=== PATIENT | female | born 1985 | race Caucasian/White ===

== ENCOUNTER 2016-09-02 18:45 | Outpatient (CLI) | payer MEDICAID ==
[~2016-09-02] VITALS: Ht 165.1 cm; Wt 73.0 kg
[2016-09-02 19:21] VITALS: Ht 165.1 cm; Wt 73.0 kg
--- NOTE | 2016-09-02 19:41 | PN ---
Date/Time of Note Date/Time of Note DATE: 09/02/16 TIME: 19:38 OB Subjective Subjective Subjective 31 yo P0 @ 39wks5 days, present w ctx, r/o labor. No LOF, good FM, no VB (has some now after exam) OB Objective Objective Objective VS: 142/86, 87, 18, 98.1 Abdomen- gravid, n/t SVE- 1/50/-2 FHt- 120's; reactive; Cat I [place]- irreg ctx Abdomen: WNL Cervical Dilatation: 1cm Effacement: 50% Station: -2 Membranes: Intact Heart Rate: 120's Accelerations: Accelerations Present Decelerations: No Decelerations Contractions on Admission: >10 Minutes Apart OB Assessment/Plan Other Assessment: 31 yo P0 @ term, r/o labor Other plan: not in labor d/c home f/u ELHAM Zhong MD Sep 02, 2016 19:40
--- NOTE | 2016-09-02 19:56 | TRIAGE ---
OB Triage Datetime Report Generated by CPN: 09/02/2016 19:56 Datetime: 09/02/2016 19:31 Monitor Mode: Palpation Quality: Mild Datetime: 09/02/2016 19:30 Labor Evaluation Frequency: 5-6 Monitor Mode: External Duration (sec)2399: 50-60 Pattern: Normal: <= 5 Contractions in 10 Minutes Heart Rate FHR Baseline Rate: 125 Monitor Mode: External US FHR Baseline Changes: No Baseline Change Variability: Moderate 6-25 bpm Accelerations: 15X15 Decelerations: None Category: Category I Datetime: 09/02/2016 19:05 Stage of : OB Triage Assessment Type: Triage EGA: 39.5 Maternal Assessment Level of Consciousness: Fully Conscious DTR's/Clonus: DTRs 2+; No Clonus Headache: Denies Blurred Vision: No Respiratory Effort: Unlabored; Regular Rhythm; Equal Expansion Breath Sounds, Left: Clear and Equal Breath Sounds, Right: Clear and Equal Nausea/Vomiting: Denies RUQ Epigastric Pain: Denies Lower Extremities Edema: None Degree: None Upper Extremities Edema: None Degree: None Facial Edema: None Temperature Route: Axillary Fall Risk Assessment History of Falling: (0) No Secondary Diagnosis: (0) No Ambulatory Aid: (0) Bedrest/Nurse Assist IV Therapy: (0) No Gait: (0) Normal/Bedrest/Immobile Mental Status: (0) Oriented to Own Ability Fall Score: 0 Fall Risk Score Definition: No Risk: No action required Labor Evaluation Frequency: 5-6 Monitor Mode: External Duration (sec)2399: 30-50 Quality: Mild Pattern: Normal: <= 5 Contractions in 10 Minutes Resting Tone Clancy: Relaxed Heart Rate FHR Baseline Rate: 135 Monitor Mode: External US Variability: Moderate 6-25 bpm Decelerations: None Category: Category II Pain Assessment Pain Scale: 5 Pain Presence: Intermittent Pain Type: Cramping Pain Location: Abdomen Pain Goal: 3 Pain Relief Measures: Comfort Measures Vaginal Exam Dilatation (cms): 1.0 Effacement (%): 50 Station: -2 Exam By: Tiny SALVATORE Membrane Status: Intact Datetime: 09/02/2016 19:04 Time of Arrival: 09/02/2016 18:50 Arrived By: Ambulatory Arrived From: Home Chief Complaint: C/O UC'S TODAY Q 5-10 MIN. DENIES LEAKING OF FLUID, BUT STATES SOME BLEEDING Movement: Present Contractions: Regular Contractions: 5-10 Rupture of Membranes: Denies Vaginal Discharge: Present Recent Sexual Intercouse: Denies Abdominal Trauma: Not Applicable Patient Complaints: Contractions Additional Patient Complaints: BABY LEVEL 2 U/S KIDNEY R RENAL ARTERY NOT VISUALIZED INITIALLY, B UT SEEN LATER IN Time Provider Notified: 09/02/2016 19:30 Provider Notified: SIMSPON Initial Plan: MONITOR, VE
== END 2016-09-02 19:50 | disposition home or self-care (01) ==
LOC: OBT 18:45 → L-D 19:03 → OBT 19:50
PROVIDERS: ATTEND Obstetrics & Gynecology
DX: O26.893 Other specified pregnancy related conditions, third trimester (principal); Z3A.39 39 weeks gestation of pregnancy
CPT/HCPCS: G0463

== ENCOUNTER 2016-09-05 07:06 | Inpatient (IN) | payer MEDICAID ==
[~2016-09-05] VITALS: Ht 165.1 cm; Wt 76.5 kg
[2016-09-05 07:18] VITALS: Ht 165.1 cm; Wt 76.5 kg
[2016-09-05] MEDS ORDERED: PREN1TAB31 PO (07:21)
[2016-09-05] MEDS ORDERED: MISOPROSTOL 200 MCG TAB PR PRN (08:00)
[2016-09-05] MEDS ORDERED: BUTORPHANOL 2 MG INJ IV PRN (08:00)
[2016-09-05] MEDS ORDERED: LACTATED RINGER'S 1,000 ML IV PRN (08:00)
[2016-09-05] MEDS ORDERED: LIDOCAINE 1% (MPF) 30 ML INJ INJ PRN (08:00)
[2016-09-05] MEDS ORDERED: IBUPROFEN 600 MG TAB PO PRN (08:00)
[2016-09-05] MEDS ORDERED: OXYTOCIN 30 UNITS/LR 500 ML IV PRN (08:00)
[2016-09-05] MEDS ORDERED: AMPICILLIN 2 GM/NS (PMX) 100 ML IV ONE (08:00)
[2016-09-05] MEDS ORDERED: METHYLERGONOVINE 0.2 MG INJ IM PRN (08:00)
[2016-09-05] MEDS ORDERED: OXYTOCIN 30 UNITS/LR 500 ML IV SCH ×2 (08:00)
[2016-09-05] MEDS ORDERED: CARBOPROST 250 MCG INJ IM PRN (08:00)
[2016-09-05 08:18] LABS: ADD SCAN DIFF NO
[2016-09-05 08:28] LABS: BASOPHILS % 0.4 % (0.0-2.0); EOSINOPHILS # 0.1 10^3/ul (0.0-0.5); EOSINOPHILS % 0.6 % (0.0-7.0); HEMATOCRIT 40.8 % (37.0-47.0); HEMOGLOBIN 13.5 g/dl (12.0-16.0); LYMPHOCYTES # 1.8 10^3/ul (0.8-2.9); LYMPHOCYTES % 21.2 % (15.0-51.0); MEAN CORPUSCULAR HEMOGLOBIN 28.4 pg (29.0-33.0); MEAN CORPUSCULAR HGB CONC 33.1 g/dl (32.0-37.0); MEAN CORPUSCULAR VOLUME 85.9 fl (82.0-101.0); MEAN PLATELET VOLUME 11.7 fl (7.4-10.4); MONOCYTE # 0.9 10^3/ul (0.3-0.9); MONOCYTES % 10.3 % (0.0-11.0); NEUTROPHIL # 5.5 10^3/ul (1.6-7.5); NEUTROPHILS % 66.3 % (39.0-77.0); PLATELET COUNT 222 10^3/UL (140-415); RED BLOOD COUNT 4.75 10^6/ul (4.20-5.40); RED CELL DISTRIBUTION WIDTH 14.6 % (11.5-14.5); WHITE BLOOD COUNT 8.3 10^3/ul (4.8-10.8)
[2016-09-05] MEDS: LACTATED RINGER'S 1,000 ML IV SCH ×2 (08:28→16:15)
[2016-09-05 08:32] LABS: INR 0.83; PROTIME 11.4 Sec (12.2-14.2); PT RATIO 0.9
[2016-09-05 08:33] LABS: PARTIAL THROMBOPLASTIN TIME 26.4 Sec (25.0-35.0)
--- NOTE | 2016-09-05 08:50 | TRIAGE ---
OB Triage Datetime Report Generated by CPN: 09/05/2016 08:50 Datetime: 09/05/2016 08:18 Assessment Type: Admission Assessment Vaginal Bleeding: None Maternal Assessment Level of Consciousness: Fully Conscious DTR's/Clonus: DTRs 2+; No Clonus Headache: Denies Blurred Vision: No Respiratory Effort: Unlabored; Regular Rhythm; Equal Expansion Breath Sounds, Left: Clear and Equal Breath Sounds, Right: Clear and Equal Nausea/Vomiting: Denies RUQ Epigastric Pain: Denies Lower Extremities Edema: None Degree: None Upper Extremities Edema: None Degree: None Facial Edema: None Fall Risk Assessment History of Falling: (0) No Secondary Diagnosis: (0) No Ambulatory Aid: (0) Bedrest/Nurse Assist IV Therapy: (20) Yes Gait: (0) Normal/Bedrest/Immobile Mental Status: (0) Oriented to Own Ability Fall Score: 20 Fall Risk Score Definition: No Risk: No action required Pain Assessment Pain Scale: 0 Pain Presence: None/Denies Pain Type: N/A Datetime: 09/05/2016 08:00 Time of Arrival: 09/05/2016 08:00 EGA: 40.1 Arrived By: Ambulatory Datetime: 09/05/2016 07:18 Assessment Type: Triage Maternal Assessment Level of Consciousness: Fully Conscious DTR's/Clonus: DTRs 2+; No Clonus Headache: Denies Blurred Vision: No Respiratory Effort: Unlabored; Regular Rhythm; Equal Expansion Breath Sounds, Left: Clear and Equal Breath Sounds, Right: Clear and Equal Nausea/Vomiting: Denies RUQ Epigastric Pain: Denies Lower Extremities Edema: None Degree: None Upper Extremities Edema: None Degree: None Facial Edema: None Fall Risk Assessment History of Falling: (0) No Secondary Diagnosis: (0) No Ambulatory Aid: (0) Bedrest/Nurse Assist IV Therapy: (0) No Gait: (0) Normal/Bedrest/Immobile Mental Status: (0) Oriented to Own Ability Fall Score: 0 Fall Risk Score Definition: No Risk: No action required Datetime: 09/05/2016 07:17 Assessment Type: Triage Datetime: 09/05/2016 06:56 Time of Arrival: 09/05/2016 06:56 EGA: 40.1 Arrived By: Wheelchair Arrived From: Home Chief Complaint: R/O LABOR Movement: Present Contractions: Denies/Absent Rupture of Membranes: Denies Vaginal Discharge: Denies Recent Sexual Intercouse: Denies Abdominal Trauma: Not Applicable Additional Patient Complaints: SPOTTING Time Provider Notified: 09/05/2016 07:17 Provider Notified: [facility] Initial Plan: MONITOE AND VE Datetime: 09/02/2016 19:05 EGA: 39.5 Fall Score: 0 Fall Risk Score Definition: No Risk: No action required
[2016-09-05] MEDS: OXYTOCIN 30 UNITS/LR 500 ML IV SCH (09:18)
[2016-09-05] MEDS: AMPICILLIN 1 GM/NS (PMX) 50 ML IV SCH ×3 (11:53→20:32)
[2016-09-06] MEDS: LACTATED RINGER'S 1,000 ML IV SCH ×2 (00:45→08:31)
[2016-09-06] MEDS: AMPICILLIN 1 GM/NS (PMX) 50 ML IV SCH ×3 (00:45→08:27)
[2016-09-06] MEDS ORDERED: BUTORPHANOL 2 MG INJ IV PRN (08:00)
[2016-09-06] MEDS ORDERED: MINERAL OIL 30ML CUP PO ONE (09:00)
[2016-09-06] MEDS ORDERED: MINERAL OIL LIGHT 10 ML VIAL TOP ONE (10:00)
[2016-09-06] MEDS: OXYTOCIN 30 UNITS/LR 500 ML IV SCH ×3 (14:08→18:31)
[2016-09-06 14:25] VITALS: BP 120/61; PULSE 77; RESP 16
[2016-09-06] MEDS ORDERED: DIBUCAINE 1% 30 GM OINT PR PRN (15:00)
[2016-09-06] MEDS ORDERED: OXYCODONE/ASPIRIN (4.88/325) TAB PO PRN ×2 (15:00)
[2016-09-06] MEDS ORDERED: LANOLIN 7 GM TUBE TOP PRN (15:00)
[2016-09-06] MEDS ORDERED: WITCH HAZEL/GLYCERIN PAD PR PRN (15:00)
[2016-09-06] MEDS ORDERED: BENZOCAINE 20% 56 ML SPRAY TOP PRN (15:00)
[2016-09-06] MEDS ORDERED: ACETAMINOPHEN 325 MG TAB PO PRN (15:00)
[2016-09-06] MEDS ORDERED: ACETAMINOPHEN/CODEINE #3 TAB PO PRN ×2 (15:00)
[2016-09-06] MEDS ORDERED: ONDANSETRON 4 MG INJ IV PRN (15:00)
[2016-09-06 17:00] VITALS: BP 123/67; PULSE 78; RESP 20
[2016-09-06] MEDS: IBUPROFEN 600 MG TAB PO SCH ×2 (17:52→23:47)
[2016-09-06 19:45] VITALS: BP 109/66; PULSE 77; RESP 18
--- NOTE | 2016-09-06 20:21 | LDN ---
Date/Time of Note Date/Time of Note DATE: 09/06/16 TIME: 20:18 Delivery Summary Normal spontaneous vaginal delivery of a baby boy from OA position shoulders delivered without any difficulty rest of the baby's body followed cord clamped after stopped pulsation baby handed to the team for immediate attention , placenta spontaneous expulsion inspected complete patient sustained small first-degree perineal laceration repaired with 4-0 chromic catgut Problems: Infant Delivery Information Sex Infant Sex: male Apgars 1 Minute: 7 5 Minute: 9 Suctioning Delee suction performed: No Umbilical Cord Umbilical cord with: 3 Vessels Cord Blood was obtained: Yes TING MCKEE MD Sep 06, 2016 20:21
--- NOTE | 2016-09-06 20:28 | HP ---
Date/Time of Note Date/Time of Note DATE: 09/06/16 TIME: 20:22 OB - History Hx of Present Free Text/Dictation 31 years old female 1. admitted to [facility] in labor with a EDC of September 04 , complaining of vaginal bloody discharge admission examination cervical dilatation 3-4 cm with 70% effacement vertex at -2 station contraction 3-5 minutes apart heart rate category 1 patient transferred from triage unit to L&D for delivery Chief Complaint: Labor contraction Estimated Due Date: Sep 04, 2016 : 1 Para: 0 Care: Good Care Ultrasounds: Normal mid trimester US Obstetrical Complications: None Medical Complications: None Past Family/Social History * Past Medical, Surgical, Family and Obstetric Histories reviewed from chart. Rubella: immune RPR/VDRL: Negative GBS Status: Negative HBsAG: Negative OB Admission Exam Vital Signs Vital Signs Vital Signs Date Time Temp Pulse Resp B/P Pulse Ox O2 Delivery O2 Flow Rate FiO2 09/06/16 17:00 99.0 78 20 123/67 Room Air Physical Exam HEENT: WNL Heart: Rhythm Normal Lungs: Clear, Equal Abdomen: WNL Extremities: Normal Cervical Dilatation: 4cm Effacement: 75% Station: -1 Membranes: Intact Heart Rate: 120's Accelerations: Accelerations Present Decelerations: No Decelerations Varibility: Moderate Contractions on Admission: < 5 Minutes Apart Intensity: Moderate Last 72 hours Lab Results CBC & BMP 09/05/16 08:00 OB Assessment/Plan Reason for admission: active labor Plan: Expectant Management TING MCKEE MD Sep 06, 2016 20:28
[2016-09-06] MEDS: SENNA/DOCUSATE NA (8.6MG/50MG) TAB PO SCH (20:42)
[2016-09-06 23:45] VITALS: BP 99/56; PULSE 74; RESP 17
[2016-09-07 03:30] VITALS: BP 99/61; PULSE 77; RESP 19
[2016-09-07] MEDS: IBUPROFEN 600 MG TAB PO SCH ×3 (05:51→17:58)
[2016-09-07 08:30] VITALS: BP 100/55; PULSE 72; RESP 18
[2016-09-07 08:44] LABS: ADD SCAN DIFF NO
[2016-09-07 08:47] LABS: BASOPHILS % 0.3 % (0.0-2.0); EOSINOPHILS # 0.1 10^3/ul (0.0-0.5); EOSINOPHILS % 0.4 % (0.0-7.0); HEMATOCRIT 33.5 % (37.0-47.0); HEMOGLOBIN 11.3 g/dl (12.0-16.0); LYMPHOCYTES # 1.6 10^3/ul (0.8-2.9); LYMPHOCYTES % 13.4 % (15.0-51.0); MEAN CORPUSCULAR HEMOGLOBIN 28.3 pg (29.0-33.0); MEAN CORPUSCULAR HGB CONC 33.7 g/dl (32.0-37.0); MEAN CORPUSCULAR VOLUME 83.8 fl (82.0-101.0); MEAN PLATELET VOLUME 11.2 fl (7.4-10.4); MONOCYTE # 1.1 10^3/ul (0.3-0.9); MONOCYTES % 9.3 % (0.0-11.0); NEUTROPHIL # 9.2 10^3/ul (1.6-7.5); NEUTROPHILS % 75.1 % (39.0-77.0); PLATELET COUNT 206 10^3/UL (140-415); RED CELL DISTRIBUTION WIDTH 15.1 % (11.5-14.5); WHITE BLOOD COUNT 12.2 10^3/ul (4.8-10.8)
[2016-09-07] MEDS: SENNA/DOCUSATE NA (8.6MG/50MG) TAB PO SCH ×2 (09:56→21:36)
[2016-09-07 16:00] VITALS: BP 114/66; PULSE 86; RESP 18
--- NOTE | 2016-09-07 17:34 | PN ---
Date/Time of Note Date/Time of Note DATE: 09/07/16 TIME: 17:33 OB Subjective Subjective Subjective day 1 Afebrile vital signs abdomen uterus firm lochia normal extremity normal Laboratory Tests Test 09/07/16 08:14 White Blood Count 12.210^3/ul Red Blood Count 4.0010^6/ul Hemoglobin 11.3g/dl Hematocrit 33.5% Mean Corpuscular Volume 83.8fl Mean Corpuscular Hemoglobin 28.3pg Mean Corpuscular Hemoglobin Concent 33.7g/dl Red Cell Distribution Width 15.1% Platelet Count 47993^3/UL Mean Platelet Volume 11.2fl Neutrophils % 75.1% Lymphocytes % 13.4% Monocytes % 9.3% Eosinophils % 0.4% Basophils % 0.3% Nucleated Red Blood Cells % 0.0/100WBC Neutrophils # 9.210^3/ul Lymphocytes # 1.610^3/ul Monocytes # 1.110^3/ul Eosinophils # 0.110^3/ul Basophils # 0.010^3/ul Nucleated Red Blood Cells # 0.010^3/ul Current Medications Medications (Trade) Dose Ordered Sig/Luana Route PRN Reason Start Time Stop Time Status Last Admin Dose Admin Lactated Ringer's 1,000 ml @ 125 mls/hr Q8H IV 09/05/16 08:00 09/06/16 14:34 DC 09/06/16 08:31 Ampicillin 100 ml @ 100 mls/hr ONCE ONCE IV 09/05/16 08:00 09/05/16 08:59 DC 09/05/16 08:26 Ampicillin 50 ml @ 100 mls/hr Q4H IV 09/05/16 11:30 09/06/16 14:35 DC 09/06/16 08:27 Oxytocin/Lactated Ringer's 500 ml @ 0 mls/hr TITRATE IV 09/05/16 08:00 09/06/16 14:35 DC 09/06/16 14:08 Butorphanol Tartrate (Stadol) 1 mg Q2H PRN IV PAIN 09/05/16 08:00 09/06/16 06:21 DC Lidocaine 30 ml 30 ml ONCE PRN INJ EPISIOTOMY/TEARING 09/05/16 08:00 09/06/16 14:35 DC Oxytocin/Lactated Ringer's 500 ml @ 125 mls/hr ONCE -MAY REPEAT X1 IV 09/05/16 08:00 09/06/16 14:35 DC 09/06/16 12:41 Oxytocin/Lactated Ringer's 500 ml @ 125 mls/hr ONCE IV 09/05/16 08:00 09/06/16 14:35 DC Ibuprofen 600 mg 600 mg ONCE PRN PO Mild Pain (Pain Score 1-3) 09/05/16 08:00 09/06/16 14:35 DC Lactated Ringer's 1,000 ml @ 2,000 mls/hr Q30M PRN IV PRE-EPIDURAL BOLUS 09/05/16 08:00 09/06/16 14:35 DC Oxytocin/Lactated Ringer's 500 ml @ 0 mls/hr ONCE PRN IV For Hemorrhage Management 09/05/16 08:00 09/06/16 14:35 DC Methylergonovine Maleate (Methergine) 0.2 mg ONCE PRN IM VAGINAL BLEEDING 09/05/16 08:00 09/06/16 14:35 DC Carboprost Tromethamine (Hemabate) 250 mcg ONCE PRN IM VAGINAL BLEEDING 09/05/16 08:00 09/06/16 14:35 DC Misoprostol (Cytotec) 1,000 mcg ONCE PRN NC VAGINAL BLEEDING 09/05/16 08:00 09/06/16 14:35 DC Butorphanol Tartrate (Stadol) 2 mg Q2H PRN IV PAIN 09/06/16 08:00 09/06/16 14:34 DC 09/06/16 06:27 Mineral Oil (Mineral Oil) 30 ml ONCE ONCE PO 09/06/16 09:00 09/06/16 09:01 DC Mineral Oil ONCE ONCE TOP 09/06/16 10:00 09/06/16 10:01 DC Oxytocin/Lactated Ringer's 500 ml @ 125 mls/hr Q4H IV 09/06/16 14:31 09/06/16 22:30 DC 09/06/16 17:16 Ibuprofen (Motrin) 600 mg Q6 PO 09/06/16 18:00 09/07/16 12:38 Acetaminophen (Tylenol Tab) 650 mg Q4H PRN PO PAIN LEVEL 1-5 09/06/16 15:00 Acetaminophen/ Codeine Phosphate (Tylenol No.3) 1 tab Q4H PRN PO PAIN LEVEL 1-5 09/06/16 15:00 Acetaminophen/ Codeine Phosphate (Tylenol No.3) 2 tab Q4H PRN PO PAIN LEVEL 6-10 09/06/16 15:00 Oxycodone/Aspirin (Percodan) 1 tab Q3H PRN PO PAIN LEVEL 1-5 09/06/16 15:00 Oxycodone/Aspirin (Percodan) 2 tab Q3H PRN PO PAIN LEVEL 6-10 09/06/16 15:00 Ondansetron HCl (Zofran Inj) 4 mg Q6H PRN IV NAUSEA AND/OR VOMITING 09/06/16 15:00 Senna/Docusate Sodium (Senokot-S) 1 tab BID PO 09/06/16 21:00 09/07/16 09:56 Witch Rosemary/ Glycerin (Tucks Pads) 1 pad BEDSIDE MEDICATION PRN NC HEMORRHOID/EPISIOTMY PAIN 09/06/16 15:00 09/06/16 17:16 Benzocaine (Dermoplast [place]) 1 spray BEDSIDE MEDICATION PRN TOP HEMORRHOID/EPISIOTMY PAIN 09/06/16 15:00 09/06/16 17:17 Dibucaine (Nupercainal) 1 applic BEDSIDE MEDICATION PRN NC HEMORRHOID/EPISIOTMY PAIN 09/06/16 15:00 Lanolin (Anj-R-Voxurm) 1 applic BEDSIDE MEDICATION PRN TOP BEDSIDE FOR ADRIAN TO NIPPLES 09/06/16 15:00 09/06/16 17:17 Measles/Mumps/ Rubella Vaccine Live (Mmr Ii Vaccine) 0.5 ml ONCE ONCE SC* 09/08/16 09:00 09/08/16 09:01 TING MCKEE MD Sep 07, 2016 17:34
[2016-09-07 19:45] VITALS: BP 127/70; PULSE 77; RESP 18
[2016-09-08 04:05] VITALS: BP 106/59; RESP 18
[2016-09-08] MEDS: IBUPROFEN 600 MG TAB PO SCH ×2 (06:07)
[2016-09-08 07:40] VITALS: BP 103/55; PULSE 69; RESP 20
[2016-09-08] MEDS ORDERED: MEASLES,MUMPS,RUBELLA VACCINE INJ SC* ONE (09:00)
[2016-09-08] MEDS: SENNA/DOCUSATE NA (8.6MG/50MG) TAB PO SCH (09:25)
--- NOTE | 2016-09-08 09:59 | PD.PPDC ---
KNOWLEDGE MANAGER Discharge Instruction Condition Patient Condition: Good Diet Diet: Resume Regular Diet Activity/Restrictions Activity: Normal Activity May Shower Restrictions: No Exercising No Lifting No Driving No Sexual Activity Nothing in the Vagina No [place] No Tampons, douche Follow-up Follow-up with Physician: 2, Week/Weeks Return to clinic for PARTS CATALOGUER Instructions: Fever greater than 101 Worsening abdominal pain Excessive Vaginal Bleeding More than 2 pads per hour Unable to tolerate diet OB Instructions: Breast Tenderness Blurried Vision TING MCKEE MD Sep 08, 2016 09:59
--- NOTE | 2016-09-08 10:10 | DS ---
Date/Time of Note Date/Time of Note DATE: 09/08/16 TIME: 10:06 Discharge Summary Admission/Discharge Info Admit Date/Time Sep 05, 2016 at 07:17 Discharge Date/Time Afebrile, vital signs are stable abdomen soft uterus firm lochia normal extremity normal patient discharged home with follow-up instructions to be seen at the clinic in 2 weeks Current Medications Medications (Trade) Dose Ordered Sig/Luana Route PRN Reason Start Time Stop Time Status Last Admin Dose Admin Lactated Ringer's 1,000 ml @ 125 mls/hr Q8H IV 09/05/16 08:00 09/06/16 14:34 DC 09/06/16 08:31 Ampicillin 100 ml @ 100 mls/hr ONCE ONCE IV 09/05/16 08:00 09/05/16 08:59 DC 09/05/16 08:26 Ampicillin 50 ml @ 100 mls/hr Q4H IV 09/05/16 11:30 09/06/16 14:35 DC 09/06/16 08:27 Oxytocin/Lactated Ringer's 500 ml @ 0 mls/hr TITRATE IV 09/05/16 08:00 09/06/16 14:35 DC 09/06/16 14:08 Butorphanol Tartrate (Stadol) 1 mg Q2H PRN IV PAIN 09/05/16 08:00 09/06/16 06:21 DC Lidocaine 30 ml 30 ml ONCE PRN INJ EPISIOTOMY/TEARING 09/05/16 08:00 09/06/16 14:35 DC Oxytocin/Lactated Ringer's 500 ml @ 125 mls/hr ONCE -MAY REPEAT X1 IV 09/05/16 08:00 09/06/16 14:35 DC 09/06/16 12:41 Oxytocin/Lactated Ringer's 500 ml @ 125 mls/hr ONCE IV 09/05/16 08:00 09/06/16 14:35 DC Ibuprofen 600 mg 600 mg ONCE PRN PO Mild Pain (Pain Score 1-3) 09/05/16 08:00 09/06/16 14:35 DC Lactated Ringer's 1,000 ml @ 2,000 mls/hr Q30M PRN IV PRE-EPIDURAL BOLUS 09/05/16 08:00 09/06/16 14:35 DC Oxytocin/Lactated Ringer's 500 ml @ 0 mls/hr ONCE PRN IV For Hemorrhage Management 09/05/16 08:00 09/06/16 14:35 DC Methylergonovine Maleate (Methergine) 0.2 mg ONCE PRN IM VAGINAL BLEEDING 09/05/16 08:00 09/06/16 14:35 DC Carboprost Tromethamine (Hemabate) 250 mcg ONCE PRN IM VAGINAL BLEEDING 09/05/16 08:00 09/06/16 14:35 DC Misoprostol (Cytotec) 1,000 mcg ONCE PRN GA VAGINAL BLEEDING 09/05/16 08:00 09/06/16 14:35 DC Butorphanol Tartrate (Stadol) 2 mg Q2H PRN IV PAIN 09/06/16 08:00 09/06/16 14:34 DC 09/06/16 06:27 Mineral Oil (Mineral Oil) 30 ml ONCE ONCE PO 09/06/16 09:00 09/06/16 09:01 DC Mineral Oil ONCE ONCE TOP 09/06/16 10:00 09/06/16 10:01 DC Oxytocin/Lactated Ringer's 500 ml @ 125 mls/hr Q4H IV 09/06/16 14:31 09/06/16 22:30 DC 09/06/16 17:16 Ibuprofen (Motrin) 600 mg Q6 PO 09/06/16 18:00 09/08/16 06:07 Acetaminophen (Tylenol Tab) 650 mg Q4H PRN PO PAIN LEVEL 1-5 09/06/16 15:00 09/08/16 09:25 Acetaminophen/ Codeine Phosphate (Tylenol No.3) 1 tab Q4H PRN PO PAIN LEVEL 1-5 09/06/16 15:00 Acetaminophen/ Codeine Phosphate (Tylenol No.3) 2 tab Q4H PRN PO PAIN LEVEL 6-10 09/06/16 15:00 Oxycodone/Aspirin (Percodan) 1 tab Q3H PRN PO PAIN LEVEL 1-5 09/06/16 15:00 Oxycodone/Aspirin (Percodan) 2 tab Q3H PRN PO PAIN LEVEL 6-10 09/06/16 15:00 Ondansetron HCl (Zofran Inj) 4 mg Q6H PRN IV NAUSEA AND/OR VOMITING 09/06/16 15:00 Senna/Docusate Sodium (Senokot-S) 1 tab BID PO 09/06/16 21:00 09/08/16 09:25 Witch Rosemary/ Glycerin (Tucks Pads) 1 pad BEDSIDE MEDICATION PRN GA HEMORRHOID/EPISIOTMY PAIN 09/06/16 15:00 09/06/16 17:16 Benzocaine (Dermoplast [place]) 1 spray BEDSIDE MEDICATION PRN TOP HEMORRHOID/EPISIOTMY PAIN 09/06/16 15:00 09/06/16 17:17 Dibucaine (Nupercainal) 1 applic BEDSIDE MEDICATION PRN GA HEMORRHOID/EPISIOTMY PAIN 09/06/16 15:00 Lanolin (Ffg-L-Kinqar) 1 applic BEDSIDE MEDICATION PRN TOP BEDSIDE FOR ADRIAN TO NIPPLES 09/06/16 15:00 09/06/16 17:17 Measles/Mumps/ Rubella Vaccine Live (Mmr Ii Vaccine) 0.5 ml ONCE ONCE SC* 09/08/16 09:00 09/08/16 09:01 DC Final Diagnosis Term normal vaginal delivery Patient Condition: Good Procedures Spontaneous normal vaginal delivery Hx of Present Illness Term Hospital Course Uneventful Home Meds Reported Medications Vits #90-Iron Fum-FA ( Formula) 1 Each Tablet, 1 TAB PO DAILY, TAB 09/05/16 Follow-up Plan Appointment clinic in 2 weeks TING MCKEE MD Sep 08, 2016 10:10
== END 2016-09-08 15:34 | disposition home or self-care (01) | DRG 775 ==
LOC: OBT 07:06 → L-D 07:08 → OBT 07:17 → L-D 07:33 → PP1 09-06 14:10
PROVIDERS: ADMIT Obstetrics & Gynecology; ATTEND Obstetrics & Gynecology
PROC: 10E0XZZ Delivery of Products of Conception, External Approach (ICD-10-PCS; principal; 2016-09-06)
PROC: 0HQ9XZZ Repair Perineum Skin, External Approach (ICD-10-PCS; 2016-09-06)
DX: O48.0 Post-term pregnancy (principal); O70.0 First degree perineal laceration during delivery; Z3A.40 40 weeks gestation of pregnancy; Z37.0 Single live birth
CPT/HCPCS: 85025; 85610; 85730; 86592; 86900; 86901; 87340; 99464; A4310; G0463; J0290; J2590; J7120